=== PATIENT | female | born 1950 | race Caucasian/White ===

== ENCOUNTER 2016-09-05 10:00 | Inpatient (IN) | payer OTHER, MEDICARE ==
[~2016-09-05] VITALS: Ht 166.4 cm; Wt 104.0 kg
[2016-09-25] MEDS ORDERED: SPIRCAP INH (14:06)
[2016-09-25] MEDS ORDERED: LEVO137T2 PO (14:12)
[2016-09-25] MEDS ORDERED: NITR0.4S SL (14:12)
[2016-09-25] MEDS ORDERED: MULTTAB67 PO (14:12)
[2016-09-25] MEDS ORDERED: LANS30CA PO (14:37)
[2016-09-25] MEDS ORDERED: FLUO20CA4 PO (14:37)
[2016-09-25] MEDS ORDERED: ATOR40TA16 PO (15:41)
[2016-09-25] MEDS ORDERED: VITA500030 CHEW (15:41)
[2016-09-25] MEDS ORDERED: CARV6.252 PO (15:41)
[2016-09-25] MEDS ORDERED: ALPR1TAB3 PO (15:41)
[2016-09-25] MEDS ORDERED: AMLO5TAB2 PO (15:41)
[2016-09-25] MEDS ORDERED: CIPR-9 PO (15:50)
[2016-09-25] MEDS ORDERED: LOSA100T3 PO (15:50)
[2016-09-25] MEDS ORDERED: DIPH25CA PO (15:50)
[2016-09-25] MEDS ORDERED: VENTAER INH (15:50)
[2016-09-25] MEDS ORDERED: LIAL1.2T PO (15:50)
[2016-09-26] MEDS ORDERED: DEXAMETHASONE SOD PHOS 20 MG/5 ML VIAL ONE (06:59)
[2016-09-26] MEDS ORDERED: ceFAZolin INJ 1,000 MG VIAL ONE (06:59)
[2016-09-26] MEDS ORDERED: SODIUM CHLORIDE 0.9% INJ 100 ML ONE (07:00)
--- NOTE | 2016-09-26 07:01 | HHI.DCPOC ---
Discharge Care Plan Diagnosis: (1) Primary localized osteoarthrosis, lower leg Your Health Problems Are: Difficulty with ADL Goals to Promote Your Health * To prevent worsening of your condition and complications * To maintain your health at the optimal level Directions to Meet Your Goals Take your medications as prescribed Follow your dietary instruction Follow activity as directed Keep your appointments as scheduled Take your immunizations and boosters as scheduled If your symptoms worsen call your PCP, if no PCP go to Urgent Care Center or Emergency Room Smoking is Dangerous to Your Health. Avoid second hand smoke Call the 24-hour hour crisis hotline for domestic abuse at Edis Adams Sep 26, 2016 07:01
[2016-09-26] MEDS ORDERED: SODIUM CHLOR 0.9% 250 ML INJ 250 ML ONE (07:02)
[2016-09-26] MEDS ORDERED: VANCOMYCIN HCL 1000 MG VIAL ONE (07:02)
--- NOTE | 2016-09-26 07:02 | HHI.FF ---
Face to Face Verification Diagnosis: (1) Primary localized osteoarthrosis, lower leg Physical Therapy Gait training, Transfer training, bed to chair Knee: Total knee Right LE Weight Bearing: WB as tolerated Right LE Range of Motion: Active ROM Nursing Nursing: Mercedes teaching, Dressing changes Dressing Changes: Daily dressing change I have seen patient Rosa Maria Bowden on 09/26/16. My clinical findings support the need for the requested home health care services because: Limited ability to care for self High risk of falls I certify that my clinical findings support that this patient is homebound because: Post-op weakness Unsteady gait/balance Edis Adams Sep 26, 2016 07:02
[2016-09-26 07:04] VITALS: BP 135/85; PULSE 68; RESP 20; TEMP 98; O2SAT 98
[2016-09-26] MEDS ORDERED: WALKER WHEELS/F1 MIS (07:05)
[2016-09-26] MEDS ORDERED: CPMMACHINE (07:05)
[2016-09-26] MEDS ORDERED: COMMODE 3-IN-11 MIS (07:05)
[2016-09-26] MEDS ORDERED: GENTAMICIN SULFATE 80 MG/2 ML VIAL ONE (07:08)
[2016-09-26] MEDS ORDERED: METOPROLOL TARTRATE 25 MG TAB PO PRN (07:15)
[2016-09-26] MEDS ORDERED: SODIUM CHLORID 0.9% 500 ML IV SCH (07:15)
[2016-09-26] MEDS ORDERED: INSULIN HUMAN REGULAR 1,000 UNITS/10 ML VIAL SQ PRN (07:15)
[2016-09-26] MEDS ORDERED: LACTATED RINGER'S 1000 ML IV SCH (07:15)
[2016-09-26] MEDS ORDERED: VANCOMYCIN 1000 MG/NS 250 ML (for <70 kg) IV SCH ×2 (07:30)
[2016-09-26] MEDS ORDERED: DEXAMETHASONE SOD PHOS 20 MG/5 ML VIAL IV ONE (07:30)
[2016-09-26] MEDS: POVIDONE IODINE 7.5% SCRUB 118 ML BOTTLE TOP SCH (07:30)
[2016-09-26] MEDS: ROPIVACAINE PERI-ARTICULAR INJECTION. PERIART SCH ×10 (07:30→09:07)
[2016-09-26] MEDS ORDERED: ceFAZolin 2 GM PREMIX 50 ML IV SCH (07:30)
[2016-09-26] MEDS ORDERED: MIDAZOLAM HCL 5 MG/5 ML VIAL ONE ×2 (07:43→07:58)
[2016-09-26] MEDS: TRANEXAMIC ACID INJ 985 MG in SODIUM CHLORIDE 0.9% INJ 100 ML IV SCH ×2 (08:30→08:40)
[2016-09-26] MEDS ORDERED: ONDANSETRON HCL 4 MG/2 ML VIAL IV PUSH ONE (08:50)
[2016-09-26] MEDS ORDERED: ePHEDrine/NS 50 MG/5 ML SYR IV ONE (08:50)
[2016-09-26] MEDS ORDERED: PROPOFOL 200 MG/20 ML AMP IV ONE (08:50)
[2016-09-26] MEDS ORDERED: LACTATED RINGER'S 1000 ML INJ 1,000 ML IV ONE (08:50)
[2016-09-26] MEDS ORDERED: PHENYLEPH/NS 1000 MCG/10 ML SYR IV ONE (08:50)
[2016-09-26] MEDS: SODIUM CHLOR 0.9% 1000 ML INJ 1,000 ML IV SCH ×2 (10:22→20:22)
--- NOTE | 2016-09-26 10:27 | PD.OP ---
cc: Rachid Jordan MD Operative Report Date of Surgery: Sep 26, 2016 Preoperative Diagnosis: Right knee severe osteoarthritis Postoperative Diagnosis: Same Procedure: Right total knee arthroplasty Anesthesia: Spinal and adductor canal block Surgeon: Rachid Jordan Heat Regulator(s): JOSUE Norris The surgical procedure was assisted by my Advanced Registered Nurse Practitioner. My PRODUCTION LINE ASSEMBLER presence was necessary throughout this case for the manipulation and positioning of the surgical extremity. My PRODUCTION LINE ASSEMBLER was assisting me throughout the duration of this procedure. The skill set of an Advance Registered Nurse Practitioner was medically necessary to complete this procedure. During the surgical case, the surgical instrument technician was working at the back table and the Advance Registered Nurse Practitioner was directly assisting me. Operation and Findings: IMPLANTS: DePuy Attune: Patella: size 32. Femur, posterior stabilized size 6. Tibia, rotating platform size 6. Tibial insert, rotating platform, posterior stabilized size 5 mm thickness. ESTIMATED BLOOD LOSS: 150 cc TOURNIQUET TIME: 38 minutes at 300 mmHg pressure. JUSTIFICATION FOR PROCEDURE: The patient has end-stage osteoarthritis to the knee. There is an attached conservative measures pathway form in the chart that describes the nonoperative measures that were undertaken prior to consideration of surgical management. The patient understood the risks and benefits of surgical management. See my office notes for further details PROCEDURE: The patient was brought back to the operative theatre. Adequate anesthesia was obtained. The patient received intravenous vancomycin and Ancef. The lower extremity was prepped and draped in the usual sterile fashion.The leg was exsanguinated, the tourniquet was raised. A standard anterior incision was performed followed by medial parapatellar arthrotomy was performed. End-stage arthritis was identified. Osteotomy of the patella was performed. We drilled holes for the patella. We trialed the patella component. We placed an intramedullary guide into the distal femur. We ultimately resected 14 mm off of the distal femur in 5 degrees of valgus. The remnants of the ACL and PCL were resected. Osteotomy of the proximal tibia was performed, resecting 5 mm off of the medial side. This was done with 3 degrees of posterior slope using an extramedullary guide. The distal end of the guide was placed in the mid aspect of the ankle. The femur was sized, and four chamfer cuts were completed in 3 of external rotation. We then cut the central box in the distal femur to replace the PCL. We resected the remnants of the menisci and removed osteophytes off of the femur and tibia. We then trialed the knee. We punched the tibia for the keel, and then used standard technique to cement in components. Excess cement was removed. We trialed the knee again and the final polyethylene thickness was chosen to provide extension to 0 degrees, and flexion of 140 degrees to gravity. The ligaments were appropriately balanced. Lateral release was necessary to obtain excellent patellofemoral tracking. The tourniquet was released and adequate hemostasis was obtained. An intra- articular injection of a ropivacaine cocktail was injected. The posterior knee was inspected for excess cement, which was removed. The final polyethylene was put into position after thorough irrigation. We then closed deep fascia with a #2 Stratafix followed by skin with 2-0 Vicryl followed by aracelis. Postop plan is to weight-bear as tolerated. DVT prophylaxis will be performed with SCDs, PAMELA mendiola, early mobilization, and Lovenox followed by aspirin. Note that the patient was written postoperatively for standard pain management including Mantoloking. Initially she had indicated there was an allergy to acetaminophen. However, the patient says that this was due to a previous history of hepatitis C and she was told to limit her amount of acetaminophen. She says that the hepatitis has been cured and that acetaminophen is not a problem to take. Rachid Jordan MD Sep 26, 2016 10:27
[2016-09-26] MEDS ORDERED: NORC5TAB PO (10:29)
[2016-09-26] MEDS ORDERED: ENOX40P SQ (10:29)
[2016-09-26] MEDS ORDERED: ASPI325T PO (10:29)
[2016-09-26] MEDS ORDERED: ALUMINUM/MAGNESIUM/SIMETH 30 ML CUP PO PRN (10:30)
[2016-09-26] MEDS ORDERED: SODIUM CHLORIDE 0.9% FLUSH 5 ML FLUSH IVF PRN (10:30)
[2016-09-26] MEDS ORDERED: ONDANSETRON HCL 4 MG/2 ML VIAL IVP PRN (10:30)
[2016-09-26] MEDS ORDERED: Post-op Orders (for Pharmacy) MISC XX ONE (10:30)
[2016-09-26] MEDS ORDERED: MORPHINE SULFATE 4 MG/ML INJ IV PUSH PRN (10:30)
[2016-09-26] MEDS ORDERED: BISACODYL 10 MG SUPP PR PRN (10:30)
[2016-09-26] MEDS ORDERED: MAGNESIUM HYDROXIDE SUSP 30 ML CUP PO PRN (10:30)
[2016-09-26] MEDS ORDERED: ALBUTEROL SULFATE 90 MCG/ACT HFA 8 GM INHALER INH PRN (10:30)
[2016-09-26] MEDS ORDERED: NALOXONE HCL 0.4 MG/ML AMP IV PRN (10:30)
[2016-09-26] MEDS ORDERED: ZOLPIDEM TARTRATE 5 MG TAB PO PRN (10:30)
[2016-09-26] MEDS ORDERED: diphenhydrAMINE HCL 50 MG/ML VIAL IV PRN (10:30)
[2016-09-26] MEDS ORDERED: diphenhydrAMINE HCL 25 MG CAP PO PRN (10:30)
[2016-09-26] MEDS ORDERED: DO NOT ADM ANY ANTICOAGULANT DRUGS XX PRN (10:45)
[2016-09-26] MEDS ORDERED: ERYTHROMYCIN 0.5% OPTH OINT 1 GM TUBO ONE (11:12)
--- NOTE | 2016-09-26 11:22 | RADRPT ---
EXAM DATE/TIME: 09/26/2016 10:51 [facility] COMPARISON: No previous studies available for comparison. INDICATIONS: Post op right knee surgery. MEDICAL HISTORY: Osteoarthritis. SURGICAL HISTORY: Total knee replacement, left. ENCOUNTER: Initial ACUITY: 1 day PAIN SCORE: 0/10 LOCATION: Right Knee. FINDINGS: A right total knee arthroplasty is noted with prosthesis in good position. No fracture or dislocatio n is noted. CONCLUSION: 1. Status post right total knee arthroplasty with prosthesis in good position. Jared Mcnamara MD on September 26, 2016 at 11:13 Board Certified Radiologist. This report was verified electronically.
[2016-09-26] MEDS ORDERED: SODIUM CHLORIDE 0.9% IV SCH (11:30)
[2016-09-26] MEDS ORDERED: TRANEXAMIC ACID IV SCH (11:30)
[2016-09-26] MEDS ORDERED: *morphine SULFATE 8 MG/ML PERIprocedure ONLY ONE ×2 (11:30→12:35)
[2016-09-26] MEDS: ALPRAZolam 1 MG TAB PO PRN ×2 (11:48→23:35)
[2016-09-26] MEDS ORDERED: MORPHINE SULFATE 4 MG/ML INJ ONE (11:52)
[2016-09-26] MEDS ORDERED: BALANCED SALT SOLN OPHT IRRIG 15 ML BTL LEFT EYE ONE (12:00)
[2016-09-26] MEDS ORDERED: TETRACAINE 0.5% OPTH SOLN 2 ML BTL LEFT EYE ONE (12:00)
[2016-09-26] MEDS ORDERED: ERYTHROMYCIN 0.5% OPTH OINT 3.5 GM TUBO LEFT EYE ONE (12:00)
[2016-09-26] MEDS ORDERED: *RESP: ALBUTEROL 2.5 MG/3 ML NEB (PRN) PERIprocedural Use ONLY NEB ONE (12:09)
[2016-09-26] MEDS ORDERED: LORazepam 2 MG/ML VIAL ONE ×2 (12:13→12:47)
[2016-09-26] MEDS ORDERED: BUPIVACAINE LIPOSOME PF 1.3% 20 ML VIAL ONE (12:22)
[2016-09-26] MEDS ORDERED: *HYDROmorphone PF 1 MG VIAL PERIprocedural Use ONLY ONE (13:09)
--- NOTE | 2016-09-26 14:13 | PD.CONS ---
HPI Service [facility] Consult Requested By Ortho Reason for Consult Medical management Primary Care Physician Non-Staff Diagnoses: History of Present Illness 65 years old female with history of hypertension hyperlipidemia and GERD osteoarthritis, admitted for right total knee arthroplasty by ortho service, patient seen postop she was extremely anxious, seems like she scratched her left eye during the surgery, patient was given I V Ativan to calm her down in the PACU, she told me she doesn't have a chest pain or short of breath, she's bothered by her eye and her knee, no abdominal pain or diarrhea constipation I discussed with the nurse in the PACU Review of Systems Other All 10 systems reviewed and was positive for what is mentioned in history of present illness otherwise negative Past Family Social History Allergies: Coded Allergies: Biaxin (Unverified Allergy, Severe, HEMORRHAGIC COLITIS, 09/26/16) Acetaminophen (Unverified Adverse Reaction, Severe, HX HEPATITIS C, ) Past Medical History Hypertension Hyperlipidemia Depression GERD Osteoarthritis Past Surgical History Right total knee arthroplasty today Family History Patient unaware of significant medical problem in the family Social History Denied tobacco alcohol or illicit drug abuse Physical Exam Vital Signs Vital Signs Date Time Temp Pulse Resp B/P Pulse Ox O2 Delivery O2 Flow Rate FiO2 09/26/16 12:15 78 18 162/57 95 Nasal Cannula 3 09/26/16 11:45 79 18 116/58 98 Nasal Cannula 3 09/26/16 11:30 72 20 129/70 96 Nasal Cannula 3 09/26/16 11:15 72 18 135/75 96 Nasal Cannula 3 09/26/16 11:00 107 18 132/79 97 Nasal Cannula 3 09/26/16 10:45 97.5 88 14 126/76 95 Nasal Cannula 3 09/26/16 07:04 98.0 68 20 135/85 98 Physical Exam GENERAL: This is a well-nourished, well-developed patient, in no apparent distress. SKIN: No rashes, warm and dry HEAD: Atraumatic. Normocephalic. EYES: Left eye covered with with heart ocular plastic cover, patient not open her eye when I tried to look ENT: Nose without bleeding, or drainage, Airway patent. NECK: Trachea midline. Supple CARDIOVASCULAR: Regular rate and rhythm without murmurs, gallops, or rubs. RESPIRATORY: Fair air entry bilaterally. No wheezes, rales, or rhonchi. GASTROINTESTINAL: Abdomen soft, non-tender, nondistended. Positive bowel sounds MUSCULOSKELETAL: Right knee in gauze, patient able to wiggle her both right and left toes NEUROLOGICAL: Awake and alert. Moves all extremity. Normal speech.no focal neurological deficit Laboratory Laboratory Tests Test 09/26/16 07:00 Blood Type O POSITIVE Antibody Screen NEGATIVE Imaging Last Impressions Knee X-Ray 09/26/16 1022 Signed Impressions: Service Date/Time: Monday, September 26, 2016 10:51 - CONCLUSION: 1. Status post right total knee arthroplasty with prosthesis in good position. Jared Mcnamara MD Assessment and Plan Assessment and Plan 65 years old female admitted for Right total knee arthroplasty due to osteoarthritis: Doing well postop except for anxiety and patient scratch her left eye, will continue pain management, DVT prophylaxis with Lovenox per ortho Questionable left corneal abrasion: Keep a sterile eyes, consider ophthalmology consultation Hypertension: Agree with continuing Norvasc, HCTZ, Coreg him a check CBC BMP in a.m. Hyperlipidemia, agree with continuing statin Depression and anxiety: Agree with continuing Xanax, We'll give Ativan iv as needed for severe symptoms GERD: Agree with continuing to evaluate DVT prophylaxis Lovenox per ortho Thank you for this consultation will follow patient with you Nael Marte MD Sep 26, 2016 14:13
[2016-09-26] MEDS ORDERED: LORazepam 2 MG/ML VIAL IV PUSH PRN (14:15)
[2016-09-26] MEDS ORDERED: TETRACAINE 0.5% OPTH SOLN 15 ML BTL LEFT EYE ONE (14:30)
[2016-09-26 14:40] VITALS: BP 176/88; PULSE 86; RESP 18; TEMP 97.9; O2SAT 98
[2016-09-26 16:00] VITALS: BP 128/63; PULSE 87; RESP 18; TEMP 96; O2SAT 94
[2016-09-26] MEDS: ACETAMINOPHEN/HYDROcodone 325 MG/5 MG TAB PO PRN ×2 (18:22→23:31)
[2016-09-26 20:30] VITALS: BP 132/57; PULSE 85; RESP 18; TEMP 97.5; O2SAT 92
[2016-09-26] MEDS: CARVEDILOL 6.25 MG TAB PO SCH (21:00)
[2016-09-26] MEDS: SODIUM CHLORIDE 0.9% FLUSH 5 ML FLUSH IVF SCH (21:20)
[2016-09-26] MEDS: FLUoxetine HCL 20 MG CAP PO SCH (21:21)
[2016-09-26] MEDS: ATORVASTATIN 40 MG TAB PO SCH (21:21)
[2016-09-27 00:50] VITALS: BP 118/69; PULSE 76; RESP 17; TEMP 97.1; O2SAT 93
[2016-09-27] MEDS: ACETAMINOPHEN/HYDROcodone 325 MG/5 MG TAB PO PRN ×5 (01:27→21:40)
[2016-09-27 05:43] LABS: HEMATOCRIT 29.3 % (35.0-46.0); MEAN CELL VOLUME 90.4 FL (80.0-100.0); MEAN CORPUSCULAR HEMOGLOBIN 30.6 PG (27.0-34.0); MEAN CORPUSCULAR HGB CONC 33.8 % (32.0-36.0); PLATELET COUNT 217 TH/MM3 (150-450); RED BLOOD COUNT 3.24 MIL/MM3 (4.00-5.30); RED CELL DISTRIBUTION WIDTH 13.4 % (11.6-17.2); REVIEW FLAG FINAL; WHITE BLOOD COUNT 13.9 TH/MM3 (4.0-11.0)
[2016-09-27] MEDS: LEVOTHYROXINE SODIUM 112 MCG TAB PO SCH (05:59)
[2016-09-27] MEDS: LEVOTHYROXINE SODIUM 25 MCG TAB PO SCH (06:00)
[2016-09-27] MEDS: SODIUM CHLOR 0.9% 1000 ML INJ 1,000 ML IV SCH ×2 (06:22→16:19)
[2016-09-27] MEDS: POVIDONE IODINE 7.5% SCRUB 118 ML BOTTLE TOP SCH (07:30)
[2016-09-27] MEDS ORDERED: DEXAMETHASONE SOD PHOS 20 MG/5 ML VIAL IV ONE (07:45)
[2016-09-27 08:00] VITALS: BP 147/74; PULSE 81; RESP 18; TEMP 96.9; O2SAT 93
[2016-09-27] MEDS: SODIUM CHLORIDE 0.9% FLUSH 5 ML FLUSH IVF SCH ×2 (08:56→21:00)
[2016-09-27] MEDS: LOSARTAN 50 MG TAB PO SCH (08:57)
[2016-09-27] MEDS: HYDROCHLOROTHIAZIDE 12.5 MG CAP PO SCH (08:57)
[2016-09-27] MEDS: PANTOPRAZOLE SOD 40 MG DELAYED RELEASE TAB PO SCH (08:58)
[2016-09-27] MEDS: amLODIPine BESYLATE 5 MG TAB PO SCH (08:59)
[2016-09-27] MEDS: FLUoxetine HCL 20 MG CAP PO SCH (08:59)
[2016-09-27] MEDS ORDERED: NON-FORMULARY DRUG (Losartan-Hydrochlorothiazide 1 TAB) PO SCH (09:00)
[2016-09-27] MEDS: CARVEDILOL 6.25 MG TAB PO SCH ×2 (09:05→21:40)
[2016-09-27] MEDS: ENOXAPARIN SODIUM 40 MG/0.4 ML SYRINGE SQ SCH (09:33)
[2016-09-27] MEDS ORDERED: RESP: ALBUTEROL 2.5 MG/IPRATROPIUM 0.5 MG NEB (PRN) NEB (10:45)
[2016-09-27] MEDS ORDERED: ERYTHROMYCIN 0.5% OPTH OINT 3.5 GM TUBO LEFT EYE SCH (10:45)
--- NOTE | 2016-09-27 10:54 | HHI.PR ---
Subjective Remarks Follow-up visit left corneal abrasion, COPD, anxiety, status post left total knee arthroplasty. Patient seen today. Appears to be very very anxious. States she is very anxious and short of breath. Reports history of COPD states that she was on Cipro prior to being in the hospital surgery. Complaints of right lower extremity pain, surgical site. Described as sharp stabbing achy, radiating all the way down the foot. Patient reports last dose of Xanax was last night, she usually takes twice a day when necessary at home. Left eye with patch. Continues to complain left eye being "scratchy." Otherwise, Denies chest pain, palpitations, headaches, dizziness. Denies fevers, chills, n/ v/d. Objective Vitals Vital Signs Date Time Temp Pulse Resp B/P Pulse Ox O2 Delivery O2 Flow Rate FiO2 09/27/16 08:00 96.9 81 18 147/74 93 09/27/16 00:50 97.1 76 17 118/69 93 09/26/16 20:30 97.5 85 18 132/57 92 09/26/16 16:00 96.0 87 18 128/63 94 09/26/16 14:40 97.9 86 18 176/88 98 09/26/16 14:36 20 09/26/16 13:30 97.8 86 18 137/82 95 Nasal Cannula 3 09/26/16 13:30 95 18 139/81 95 Nasal Cannula 3 09/26/16 13:15 95 18 139/81 95 Nasal Cannula 3 09/26/16 12:45 74 18 137/83 95 Nasal Cannula 3 09/26/16 12:15 78 18 162/57 95 Nasal Cannula 3 09/26/16 11:45 79 18 116/58 98 Nasal Cannula 3 09/26/16 11:30 72 20 129/70 96 Nasal Cannula 3 09/26/16 11:15 72 18 135/75 96 Nasal Cannula 3 09/26/16 11:00 107 18 132/79 97 Nasal Cannula 3 I/O 09/26/16 09/26/16 09/26/16 09/27/16 09/27/16 09/27/16 07:00 15:00 23:00 07:00 15:00 23:00 Intake Total 1780 ml 1280 ml 916 ml 240 ml Output Total 1200 ml 800 ml 600 ml Balance 580 ml 480 ml 916 ml -360 ml Intake Oral 360 ml 240 ml IV Total 920 ml 916 ml TPN/PPN 380 ml Other 1400 ml Output Urine Total 1150 ml 800 ml 600 ml Estimated Blood Loss 50 ml # Bowel Movements 0 0 Result Diagram: 09/27/16 0453 Imaging Last Impressions Chest X-Ray 09/27/16 0000 Signed Impressions: Service Date/Time: September 11:21 - CONCLUSION: No acute disease. Tatum Parson MD Knee X-Ray 09/26/16 1022 Signed Impressions: Service Date/Time: Monday, September 26, 2016 10:51 - CONCLUSION: 1. Status post right total knee arthroplasty with prosthesis in good position. Jared Mcnamara MD Objective Remarks GENERAL: This is a well-nourished, well-developed patient, in no apparent distress. HEENT: Normocephalic. Nose without bleeding. Airway patent. Left eye with patch. NECK: Trachea midline. No JVD. Supple. CARDIOVASCULAR: Regular rate and rhythm without murmurs, gallops, or rubs. RESPIRATORY: Occasional mild expiratory wheeze. GASTROINTESTINAL: Abdomen soft, non-tender, nondistended. Bowel Sounds normoactive x4. MUSCULOSKELETAL: Extremities without clubbing, cyanosis, left lower extremity trace edema. NEUROLOGICAL: Awake and alert. Very anxious. Oriented x 3. No focal neuro deficit. ANDERSON. Normal speech. Procedures Status post right total knee arthroplasty A/P Problem List: (1) Primary localized osteoarthrosis, lower leg ICD Code: M17.10 Status: Acute (2) GERD (gastroesophageal reflux disease) ICD Code: K21.9 Status: Acute (3) HTN (hypertension) ICD Code: I10 Status: Acute (4) COPD exacerbation ICD Code: J44.1 Status: Acute (5) Injury of conjunctiva and corneal abrasion of left eye without foreign body ICD Code: S05.02XA Status: Acute Assessment and Plan Patient is a 65-year-old female who came in to the hospital with osteo- arthrosis of the lower leg, status post right total knee arthroplasty. Consulted for medical management. Status post right total knee arthroplasty - orthopedic service management - Pain management - PT consult Left eye corneal abrasion - patch in place, may discontinue patch use while on eyedrops - Start Ofloxacin eye drops Anxiety - continue Xanax use, changed to twice a day when necessary from every 12 hours when necessary. COPD possible exacerbation - start Levaquin 500 mg daily 7 days - DuoNeb's scheduled, and when necessary - Symbicort twice a day - Chest x-ray ordered follow-up results. HTN - continue amlodipine, HCTZ - Monitor BP trend DVT prop - Lovenox Written by Thierno Subramanian, acting as scribe for Dr. Rivera on 09/27/16 at 10:48. The documentation accurately reflects the work performed [id number] by me on at 10:48 Discharge Planning Plan for discharge by orthopedic service. Possible rehabilitation transfer. Jian Rivera DO Sep 27, 2016 10:53 Thierno Rodas Sep 27, 2016 13:41
[2016-09-27] MEDS ORDERED: FLUoxetine HCL 20 MG CAP PO ONE (11:15)
[2016-09-27] MEDS: ALPRAZolam 1 MG TAB PO PRN ×2 (11:27→21:46)
[2016-09-27] MEDS: LEVOFLOXACIN 500 MG TAB PO SCH (11:32)
[2016-09-27 11:40] VITALS: BP 142/52; PULSE 77; RESP 19; TEMP 97.6; O2SAT 93
--- NOTE | 2016-09-27 11:55 | RADRPT ---
EXAM DATE/TIME: 09/27/2016 11:21 [facility] COMPARISON: KNEE RIGHT LTD (1 OR 2 VWS), September 26, 2016, 10:51. INDICATIONS : Short of breath, coughing MEDICAL HISTORY : Chronic obstructive pulmonary disease. SURGICAL HISTORY : Total knee replacement, right. ENCOUNTER: Initial ACUITY: 2 days PAIN SCORE: 0/10 LOCATION: Bilateral chest FINDINGS: A single view of the chest demonstrates the lungs to be symmetrically aerated without evidence of mas s, infiltrate or effusion. The cardiomediastinal contours are unremarkable. Osseous structures are intact. CONCLUSION: No acute disease. Tatum Parson MD on September 27, 2016 at 11:54 Board Certified Radiologist. This report was verified electronically.
[2016-09-27] MEDS: RESP: ALBUTEROL 2.5 MG/IPRATROPIUM 0.5 MG NEB (SCH) NEB ×2 (12:17→19:25)
--- NOTE | 2016-09-27 12:17 | PD.ORT.PN ---
Subjective Post Op Day #: 1 Subjective Remarks Patient resting in bed with mild pain to the right knee. Patient has cough and was diagnosed with a corneal abrasion. Medical saw patient and is going to place patient on ABX for her cough and ABX for her left eye. Objective Vitals Vital Signs Date Time Temp Pulse Resp B/P Pulse Ox O2 Delivery O2 Flow Rate FiO2 09/27/16 11:40 97.6 77 19 142/52 93 09/27/16 08:00 96.9 81 18 147/74 93 09/27/16 00:50 97.1 76 17 118/69 93 09/26/16 20:30 97.5 85 18 132/57 92 09/26/16 16:00 96.0 87 18 128/63 94 09/26/16 14:40 97.9 86 18 176/88 98 09/26/16 14:36 20 09/26/16 13:30 97.8 86 18 137/82 95 Nasal Cannula 3 09/26/16 13:30 95 18 139/81 95 Nasal Cannula 3 09/26/16 13:15 95 18 139/81 95 Nasal Cannula 3 09/26/16 12:45 74 18 137/83 95 Nasal Cannula 3 09/26/16 12:15 78 18 162/57 95 Nasal Cannula 3 I/O 09/26/16 09/26/16 09/26/16 09/27/16 09/27/16 09/27/16 07:00 15:00 23:00 07:00 15:00 23:00 Intake Total 1780 ml 1280 ml 916 ml 240 ml Output Total 1200 ml 800 ml 600 ml Balance 580 ml 480 ml 916 ml -360 ml Intake Oral 360 ml 240 ml IV Total 920 ml 916 ml TPN/PPN 380 ml Other 1400 ml Output Urine Total 1150 ml 800 ml 600 ml Estimated Blood Loss 50 ml # Bowel Movements 0 0 Result Diagram: 09/27/16 0453 Procedures Right TKA Objective Remarks The patient's dressings are changed today with no drainage. Incision is well approximated with surgical clips intact. No redness or s/s of infection. EHL/ TA/G intact. 2+ pedal pulse. Calf is soft and nontender. +SILT. Mild swelling. Patient has a dry cough. Left eye is covered with patch. Patient is not SOB and breathing is nonlabored. Assessment & Plan Ortho Post Op Day #: 1 Problem List: Assessment and Plan POD #1: Right TKA, Left eye scratched cornea, Cough 1. WBAT RLE 2. Lovenox for DVT prophylaxis 3. Ice to the right knee PRN 4. Patient will stay overnight for ABX for her current cough and ABX for her left eye 5. Probable discharge home with home health on Saturday. Edis Adams Sep 27, 2016 12:16
[2016-09-27] MEDS: BUDESONIDE-FORMOTEROL 160/4.5 MCG INHALER INH SCH ×2 (14:04→21:42)
[2016-09-27] MEDS: OFLOXACIN 0.3% OPTH SOLN 5 ML BTL LEFT EYE SCH ×2 (14:07→18:16)
[2016-09-27 15:59] VITALS: BP 136/77; PULSE 85; RESP 19; TEMP 98.4; O2SAT 96
[2016-09-27 20:28] VITALS: BP 140/80; PULSE 88; RESP 17; TEMP 97.6; O2SAT 98
[2016-09-27] MEDS ORDERED: FLUoxetine HCL 20 MG CAP PO SCH (21:00)
[2016-09-27] MEDS: DOCUSATE SODIUM 100 MG CAP PO SCH (21:40)
[2016-09-27] MEDS: MULTIVITAMINS/MINERALS THERAPEUTIC TAB PO SCH (21:41)
[2016-09-27] MEDS: ATORVASTATIN 40 MG TAB PO SCH (21:41)
[2016-09-28] MEDS: OFLOXACIN 0.3% OPTH SOLN 5 ML BTL LEFT EYE SCH ×3 (00:21→12:29)
[2016-09-28 00:24] VITALS: BP 146/63; PULSE 72; RESP 16; TEMP 96.7; O2SAT 95
[2016-09-28] MEDS: SODIUM CHLOR 0.9% 1000 ML INJ 1,000 ML IV SCH ×2 (02:22→12:22)
[2016-09-28] MEDS: ACETAMINOPHEN/HYDROcodone 325 MG/5 MG TAB PO PRN ×3 (03:31→13:41)
[2016-09-28 05:45] LABS: HEMATOCRIT 26.2 % (35.0-46.0); MEAN CORPUSCULAR HGB CONC 34.8 % (32.0-36.0); PLATELET COUNT 196 TH/MM3 (150-450); RED BLOOD COUNT 2.94 MIL/MM3 (4.00-5.30); RED CELL DISTRIBUTION WIDTH 13.3 % (11.6-17.2); REVIEW FLAG FINAL; WHITE BLOOD COUNT 10.5 TH/MM3 (4.0-11.0)
[2016-09-28] MEDS: LEVOTHYROXINE SODIUM 112 MCG TAB PO SCH (06:24)
[2016-09-28] MEDS: LEVOTHYROXINE SODIUM 25 MCG TAB PO SCH (06:37)
[2016-09-28] MEDS: POVIDONE IODINE 7.5% SCRUB 118 ML BOTTLE TOP SCH (07:30)
[2016-09-28 08:00] VITALS: BP 139/82; PULSE 67; RESP 18; TEMP 97.3; O2SAT 95
[2016-09-28] MEDS ORDERED: FLUoxetine HCL 20 MG CAP PO SCH (09:00)
[2016-09-28] MEDS: DOCUSATE SODIUM 100 MG CAP PO SCH (09:22)
[2016-09-28] MEDS: CARVEDILOL 6.25 MG TAB PO SCH (09:22)
[2016-09-28] MEDS: LOSARTAN 50 MG TAB PO SCH (09:23)
[2016-09-28] MEDS: ENOXAPARIN SODIUM 40 MG/0.4 ML SYRINGE SQ SCH (09:23)
[2016-09-28] MEDS: amLODIPine BESYLATE 5 MG TAB PO SCH (09:23)
[2016-09-28] MEDS: MULTIVITAMINS/MINERALS THERAPEUTIC TAB PO SCH (09:23)
[2016-09-28] MEDS: HYDROCHLOROTHIAZIDE 12.5 MG CAP PO SCH (09:23)
[2016-09-28] MEDS: PANTOPRAZOLE SOD 40 MG DELAYED RELEASE TAB PO SCH (09:23)
[2016-09-28] MEDS: BUDESONIDE-FORMOTEROL 160/4.5 MCG INHALER INH SCH (09:24)
[2016-09-28] MEDS: SODIUM CHLORIDE 0.9% FLUSH 5 ML FLUSH IVF SCH (09:24)
[2016-09-28] MEDS: LEVOFLOXACIN 500 MG TAB PO SCH (10:30)
[2016-09-28] MEDS: ALPRAZolam 1 MG TAB PO PRN (10:30)
[2016-09-28] MEDS: RESP: ALBUTEROL 2.5 MG/IPRATROPIUM 0.5 MG NEB (SCH) NEB ×2 (10:35→12:58)
[2016-09-28] MEDS ORDERED: LEVA750T PO (11:51)
[2016-09-28] MEDS ORDERED: PRED20 PO (11:51)
--- NOTE | 2016-09-28 11:56 | HHI.PR ---
Subjective Remarks Follow-up visit left corneal abrasion, COPD, anxiety, status post right total knee arthroplasty. Patient seen today. States her right knee is improved she is able to use the walker ambulating. Her concern is primarily her lung function. States that she continues to have shortness of breath and is coughing up some phlegm. Whitish in color. Shortness of breath is improved with nebulizations. However, patient is worried that her COPD but continued to exacerbate. Otherwise, reports improvement of her left eye. Denies chest pain , palpitations, headaches, dizziness, fevers, chills, nausea, vomiting, diarrhea. Objective Vitals Vital Signs Date Time Temp Pulse Resp B/P Pulse Ox O2 Delivery O2 Flow Rate FiO2 09/28/16 00:24 96.7 72 16 146/63 95 09/27/16 20:28 97.6 88 17 140/80 98 09/27/16 15:59 98.4 85 19 136/77 96 I/O 09/27/16 09/27/16 09/27/16 09/28/16 09/28/16 09/28/16 07:00 15:00 23:00 07:00 15:00 23:00 Intake Total 916 ml 720 ml 360 ml 480 ml Output Total 600 ml Balance 916 ml 120 ml 360 ml 480 ml Intake Oral 720 ml 360 ml 480 ml IV Total 916 ml Output Urine Total 600 ml # Voids 2 4 5 # Bowel Movements 0 0 0 Result Diagram: 09/28/16 0504 Imaging Last Impressions Chest X-Ray 09/27/16 0000 Signed Impressions: Service Date/Time: September 11:21 - CONCLUSION: No acute disease. Tatum Parson MD Knee X-Ray 09/26/16 1022 Signed Impressions: Service Date/Time: Monday, September 26, 2016 10:51 - CONCLUSION: 1. Status post right total knee arthroplasty with prosthesis in good position. Jared Mcnamara MD Objective Remarks GENERAL: This is a well-nourished, well-developed patient, in no apparent distress. HEENT: Normocephalic. Nose without bleeding. Airway patent. Left eye with patch. NECK: Trachea midline. No JVD. Supple. CARDIOVASCULAR: Regular rate and rhythm without murmurs, gallops, or rubs. RESPIRATORY: Occasional mild expiratory wheeze. Fair air exchange. GASTROINTESTINAL: Abdomen soft, non-tender, nondistended. Bowel Sounds normoactive x4. MUSCULOSKELETAL: Extremities without clubbing, cyanosis, left lower extremity trace edema. NEUROLOGICAL: Awake and alert. Very anxious. Oriented x 3. No focal neuro deficit. ANDERSON. Normal speech. Procedures Status post right total knee arthroplasty A/P Problem List: (1) Primary localized osteoarthrosis, lower leg ICD Code: M17.10 Status: Acute (2) GERD (gastroesophageal reflux disease) ICD Code: K21.9 Status: Acute (3) HTN (hypertension) ICD Code: I10 Status: Acute (4) COPD exacerbation ICD Code: J44.1 Status: Acute (5) Injury of conjunctiva and corneal abrasion of left eye without foreign body ICD Code: S05.02XA Status: Acute Assessment and Plan Patient is a 65-year-old female who came in to the hospital with osteo- arthrosis of the lower leg, status post right total knee arthroplasty. Consulted for medical management. Status post right total knee arthroplasty - orthopedic service management - Pain management - PT consult Left eye corneal abrasion -I patch discontinued. -Continue Ofloxacin eye drops. Improving. Anxiety - continue Xanax use, changed to twice a day when necessary from every 12 hours when necessary. COPD possible exacerbation - start Levaquin 500 mg daily 7 days - DuoNeb's scheduled, and when necessary - Symbicort twice a day - Chest x-ray showed no acute disease. - Will start prednisone 20 mg twice a day 5 days. We'll start first dose today. - Plan for discharge today by orthopedic service. Patient will continue on DuoNeb's at home, prednisone, will restart her Spiriva instead of Symbicort, she will complete the remaining dose of Levaquin HTN - continue amlodipine, HCTZ - Monitor BP trend DVT prop - Lovenox Written by Thierno Subramanian, acting as scribe for Dr. Rivera on 09/28/16 at 11:48. The documentation accurately reflects the work performed [id number] by me on at 11:48. Discharge Planning Plan for discharge home today with [facility] by orthopedic team. Jian Rivera DO Sep 28, 2016 11:56 Thierno Rodas Sep 28, 2016 14:06
[2016-09-28 12:00] VITALS: BP 110/69; PULSE 85; RESP 18; TEMP 97.2; O2SAT 95
[2016-09-28] MEDS ORDERED: predniSONE 20 MG TAB PO ONE (12:00)
--- NOTE | 2016-09-30 17:57 | HHI.DS ---
Discharge Summary Admission Date Sep 26, 2016 at 06:24 Discharge Date: Sep 28, 2016 Admitting Diagnosis Primary localized OA, lower leg Right TKA Diagnosis: (1) Primary localized osteoarthrosis, lower leg Diagnosis: Principal Procedures Right TKA Brief History This is a 65 year old female patient with severe OA of the right knee CBC/BMP: 09/28/16 0504 Significant Findings Laboratory Tests Test 09/28/16 05:04 Red Blood Count 2.94 MIL/MM3 (4.00-5.30) Hemoglobin 9.1 GM/DL (11.6-15.3) Hematocrit 26.2 % (35.0-46.0) PE at Discharge The patient's dressings are changed today with no drainage. Incision is well approximated with surgical clips intact. No redness or s/s of infection. EHL/ TA/G intact. 2+ pedal pulse. Calf is soft and nontender. +SILT. Mild swelling. Patient has a dry cough. Left eye is covered with patch. Patient is not SOB and breathing is nonlabored. Hospital Course The patient was admitted to the hospital for severe OA of the right knee to have a right TKA. The patient's surgery went well with no complications. The patient had a normal hospital course. The patient is WBAT on the RLE. The patient is discharged home with home health and will f/u with Dr. Jordan in 1-2 weeks. Pt Condition on Discharge: Stable Discharge Disposition: Disch w/ Home Health Serv Discharge Instructions Diet Instructions: Diabetic Diet Activities You Can Perform: Weight Bearing as Rakesh Activities to Avoid: Strenuous Activity Follow up Referrals: Orthopedics with Rachid Jordan MD SNF/[facility]/ with [facility] New Medications: Aspirin (Aspirin) 325 Mg Tab 325 MG PO DAILY Start Aspirin after Lovenox is completed. Prevent Blood Clot # 30 Ref 0 TAB Commode 3-in-1 (Commode 3-in-1) 1 Mis Mis 1 EA .ROUTE DIRECTED #1 Ref 0 EA CPM-Continuous Passive Motion Machine (CPM-Continuous Passive Motion Machine) 1 Ea Device 1 EA .ROUTE DIRECTED #1 Ref 0 EA Enoxaparin Inj (Lovenox Inj) 40 Mg/0.4 Ml Syr 40 MG SQ DAILY Start Aspirin after Lovenox is completed. Blood Clot Prevention # 10 Ref 0 SYRINGE Hydrocodone-Acetaminophen (Gwinner) 5-325 mg Tab 1-2 TAB PO Q4H PRN PAIN #60 Ref 0 TAB Levofloxacin (Levaquin) 750 Mg Tab 750 MG PO DAILY Infection #6 Ref 0 TAB Prednisone (Prednisone) 20 Mg Tab 20 MG PO BID COPD #10 Ref 0 TAB Walker with Front Wheels (Walker with Front Wheels) 1 Mis Mis 1 EA .ROUTE DIRECTED #1 Ref 0 EA Continued Medications: Albuterol 18 GM Inh (Ventolin Hfa 18 GM Inh) 90 Mcg/Act Aer 2 PUFF INH Q4H PRN SHORTNESS OF BREATH #1 Ref 0 INHALER Alprazolam (Alprazolam) 1 Mg Tab 1 MG PO Q12HR PRN ANXIETY Ref 0 TAB Amlodipine (Amlodipine) 5 Mg Tab 5 MG PO DAILY Blood Pressure Management #30 Ref 0 TAB Atorvastatin (Atorvastatin) 40 Mg Tab 40 MG PO HS Cholesterol Management #30 Ref 0 TAB Carvedilol (Carvedilol) 6.25 Mg Tab 6.25 MG PO BID #60 Ref 0 TAB Cholecalciferol (Vitamin D3) 5,000 Unit Chew 5000 UNITS CHEW DAILY Nutritional Supplement #1 Ref 0 BOTTLE Diphenhydramine (Diphenhydramine) 25 Mg Cap 25 MG PO HS PRN INSOMNIA Ref 0 CAP Fluoxetine (Fluoxetine) 20 Mg Cap 20 MG PO BID #30 Ref 0 CAP Lansoprazole (Lansoprazole) 30 Mg Capdr 30 MG PO DAILY Ref 0 CAP Levothyroxine (Levothyroxine) 137 Mcg Tab 137 MCG PO DAILY Thyroid #30 Ref 0 TAB Losartan-Hydrochlorothiazide (Losartan-Hydrochlorothiazide) 100-12.5 Mg Tab 1 TAB PO DAILY Blood Pressure Management #[address] (Lialda) 1.2 Gm Tabdr 2.4 GM PO DAILY Take with a meal. Ulcerative Colitis Ref 0 TAB Multiple Vitamin (Multiple Vitamin) 1 Tab 1 TAB PO DAILY Nutritional Supplement Ref 0 TAB Nitroglycerin SL (Nitrostat SL) 0.4 Mg Subl 0.4 MG SL EVERY 5 MINS x 3 1 tablet under the tongue as needed for chest pain. Repeat every 5 minutes for a total of 3 DOSES or call 911 if NO relief. PRN CHEST PAIN #100 Ref 0 TAB.SL Tiotropium Inh (Spiriva Handihaler) 18 Mcg Cap 1 PUFF INH DAILY 1 capsule = 18 mcg COPD #30 Ref 0 CAP Discontinued Medications: Ciprofloxacin (Cipro) 500 Mg Tab 500 MG PO BID Infection Ref 0 TAB Edis Adams Sep 30, 2016 17:56
== END 2016-09-28 13:53 | disposition home health service (06) | DRG 470 ==
LOC: HSDI 09-26 06:24 → N06B 09-26 14:25
PROVIDERS: ADMIT Orthopaedic Surgery; ATTEND Orthopaedic Surgery
PROC: 3E0T3CZ (ICD-10-PCS; 2016-09-26)
PROC: 0SRC0J9 Replacement of Right Knee Joint with Synthetic Substitute, Cemented, Open Approach (ICD-10-PCS; principal; 2016-09-26 08:15)
DX: M17.11 Unilateral primary osteoarthritis, right knee (principal); J44.1 Chronic obstructive pulmonary disease with (acute) exacerbation; I10 Essential (primary) hypertension; E78.5 Hyperlipidemia, unspecified; K21.9 Gastro-esophageal reflux disease without esophagitis; F32.9 Major depressive disorder, single episode, unspecified; E03.9 Hypothyroidism, unspecified; B19.20 Unspecified viral hepatitis C without hepatic coma; F41.9 Anxiety disorder, unspecified; S05.02XA Injury of conjunctiva and corneal abrasion without foreign body, left eye, initial encounter; I25.2 Old myocardial infarction; Z86.19 Personal history of other infectious and parasitic diseases; Z87.891 Personal history of nicotine dependence; X58.XXXA Exposure to other specified factors, initial encounter; Y92.238 Other place in hospital as the place of occurrence of the external cause
CPT/HCPCS: 71010; 73560; 85027; 86850; 86900; 86901; 94150; 94640; 94664; C1776; C9290; J0171; J0690; J0735; J1100; J1170; J1580; J1650; J1885; J2060; J2250; J2270; J2370; J2405; J2795; J3370; J7030; J7050; J7120; J7512; J7613; L1830